=== PATIENT | female | born 1980 | race Caucasian/White ===

== ENCOUNTER 2019-07-30 21:50 | Emergency (ER) | payer MEDICAID ==
[2019-07-30] MEDS ORDERED: ONDANSETRON 4 MG TAB.RAPDIS PO ONE (22:15)
--- NOTE | 2019-07-30 22:16 | ER Document Report ---
ED General - General Stated Complaint: PAIN WHEN URINATING Time Seen by Provider: 07/30/19 22:12 Primary Care Provider: [facility] [place] [Provider Group] - Follow up in 3-5 days PORTILLO LIN MD [ACTIVE STAFF] - Follow up in 3-5 days Notes: 38-year-old female with history of kidney stones presents with dysuria, generalized abdominal pain, nausea and bilateral flank pain that she states has been going on for 2 weeks. Patient also states mild hematuria. Patient states she has been taking Azo without any relief, last dose was yesterday.. Patient denies any vomiting, diarrhea, constipation, fevers. Patient denies having a menstrual cycle. States she has had a hysterectomy. - Related Data Allergies/Adverse Reactions: Sulfa (Sulfonamide Antibiotics) Allergy (Severe, Verified 07/30/19 22:08) ibuprofen Allergy (Verified 07/30/19 22:08) ketorolac [From Toradol] Allergy (Verified 07/30/19 22:08) Past Medical History - Social History Smoking Status: Unknown if Ever Smoked Family History: Reviewed & Not Pertinent Pulmonary Medical History: Reports: Hx Asthma, Hx COPD Neurological Medical History: Reports: Hx Migraine Endocrine Medical History: Reports: Hx Hypothyroidism GI Medical History: Reports: Hx Gastroesophageal Reflux Disease, Hx Irritable Bowel Musculoskeletal Medical History: Reports Hx Fibromyalgia Psychiatric Medical History: Reports: Hx Attention Deficit Hyperactivity Disorder, Hx Bipolar Disorder - Immunizations Hx Diphtheria, Pertussis, Tetanus Vaccination: Yes Review of Systems - Review of Systems Notes: Constitutional: Negative for fever. HENT: Negative for sore throat. Eyes: Negative for visual changes. Cardiovascular: Negative for chest pain. Respiratory: Negative for shortness of breath. Gastrointestinal: Positive for abdominal pain and nausea. Negative for vomiting or diarrhea. Genitourinary: Positive for dysuria and hematuria. Musculoskeletal: Negative for back pain. Skin: Negative for rash. Neurological: Negative for headaches, weakness or numbness. 10 point ROS negative except as marked above and in HPI. Physical Exam - Vital signs Vitals: Temp Pulse Resp BP Pulse Ox 97.5 F 88 22 H 109/70 100 07/30/19 21:56 07/30/19 21:56 07/30/19 21:56 07/30/19 21:56 07/30/19 21:56 - Notes Notes: GENERAL: Well-appearing, well-nourished and in no acute distress. HEAD: Atraumatic, normocephalic. EYES: Extraocular movements intact, sclera anicteric, conjunctiva are normal. NECK: Normal range of motion, supple without lymphadenopathy or JVD. LUNGS: Breath sounds clear to auscultation bilaterally and equal. No wheezes rales or rhonchi. HEART: Regular rate and rhythm without murmurs, rubs or gallops. ABDOMEN: Soft, nontender. No guarding, no rebound. No masses appreciated. No CVA tenderness. EXTREMITIES: Normal range of motion, no pitting or edema. No clubbing or cyanosis. NEUROLOGICAL: Cranial nerves II through XII grossly intact. Normal speech, no rmal gait. PSYCH: Normal mood, normal affect. SKIN: Warm, Dry, normal turgor, no rashes or lesions noted. Course - Re-evaluation Re-evalutation: 07/30/19 22:18 nontoxic, well-appearing 38-year-old female presents for dysuria, hematuria, abdominal pain, nausea. Patient also has associated hematuria. Abdomen soft nontender. No CVA tenderness. PE is otherwise unremarkable. Patient is afebrile. UA was ordered. Zofran was also ordered due to nausea. 07/30/19 22:59 UA shows UTI. Pt to be given Keflex and pyridium. Pt also given zofran for nausea. Will send for culture. Discussed all results with pt. Pt also given close follow up with pcp and return precautions. Pt voices understanding and agrees with plan of care. - Vital Signs Vital signs: Temp Pulse Resp BP Pulse Ox 97.6 F 84 16 116/79 99 07/30/19 23:15 07/30/19 23:15 07/30/19 23:15 07/30/19 23:15 07/30/19 23:15 - Laboratory Laboratory results interpreted by me: 07/30/19 22:25 Urine Protein 100 H Urine Blood SMALL H Urine Nitrite POSITIVE H Urine Urobilinogen 4.0 H Ur Leukocyte Esterase LARGE H Discharge - Discharge Clinical Impression: Acute UTI, Nausea Condition: Stable Disposition: HOME, SELF-CARE Instructions: Cephalexin ([facility]), Urinary Tract Infection ([facility]) Additional Instructions: Your urine test shows a urinary tract infection. Please take Keflex as prescribed and finish all doses even if you feel better unless we call you to change it based off your urine culture. Please take Pyridium as prescribed, it will make your urine red/orange. Follow up with your primary care doctor or clinic listed in 3-5 days. Return immediately to ER for any worsening symptoms, including fever, worsening flank pain, vomiting not controlled by medication, worsening abdominal pain, chest pain, shortness of breath, or any symptoms that are concerning to you. Prescriptions: Cephalexin Monohydrate [Keflex 500 mg Capsule] 500 mg PO BID 5 Days #10 capsule Phenazopyridine HCl [Pyridium 200 mg Tablet] 200 mg PO TID #8 tablet Ondansetron [Zofran Odt 4 mg Tablet] 1 - 2 tab PO Q4H PRN #15 tab.rapdis PRN Reason: For Nausea/Vomiting Referrals: PORTILLO LIN MD [ACTIVE STAFF] - Follow up in 3-5 days [facility] [place] [Provider Group] - Follow up in 3-5 days
[2019-07-30 22:44] LABS: APPEARANCE,URINE CLOUDY; BILIRUBIN,URINE NEGATIVE (NEGATIVE); COLOR,URINE YELLOW; GLUCOSE, URINE NEGATIVE (NEGATIVE); KETONES,URINE NEGATIVE (NEGATIVE); LEUKOCYTE ESTERASE,URINE LARGE (NEGATIVE); NITRITE,URINE POSITIVE (NEGATIVE); PROTEIN,URINE 100 mg/dL (NEGATIVE); URINE SPECIFIC GRAVITY 1.014
[2019-07-30] MEDS ORDERED: PHENAZOPYRIDINE HCL 200 MG TABLET PO ONE (22:58)
[2019-07-30] MEDS ORDERED: CEPHALEXIN 500 MG CAPSULE PO ONE (23:03)
[2019-07-30 23:17] VITALS: BP 116/79
== END 2019-07-30 23:24 | disposition home or self-care (01) ==
LOC: ER 21:50
DX: N39.0 Urinary tract infection, site not specified (principal); R11.0 Nausea; R30.0 Dysuria; R10.84 Generalized abdominal pain; Z87.442 Personal history of urinary calculi; Z88.2 Allergy status to sulfonamides; Z88.6 Allergy status to analgesic agent; Z90.710 Acquired absence of both cervix and uterus
CPT/HCPCS: 99283; 87086; 87088; 81001; S0119; J3490; 87186